=== PATIENT | female | born 1955 | race Caucasian/White ===

== ENCOUNTER → 2017-09-29 10:37 | Outpatient (CLI) | payer MEDICAID, SELFPAY ==
[2017-10-05 08:11] LABS: HPV Reflexed? NOT INDICATED
== END ==
PROVIDERS: Family Provider Family Medicine; PCP Family Medicine; Visit Provider Family Medicine
DX: Z01.419 Encounter for gynecological examination (general) (routine) without abnormal findings (principal)
CPT/HCPCS: 88175; G0145

== ENCOUNTER → 2020-05-29 | Outpatient (CLI) | payer OTHER, SELFPAY ==
[2017-09-29 11:14] VITALS: BMI 30.2
== END | disposition home or self-care (01) ==
LOC: LABSPEC 15:28
PROVIDERS: PCP Family Medicine; Referring Provider Otolaryngology; Visit Provider Otolaryngology
DX: J02.9 Acute pharyngitis, unspecified (principal)
CPT/HCPCS: 87070

== ENCOUNTER 2021-05-12 10:47 | Outpatient (CLI) | payer MEDICAID, SELFPAY ==
[2021-05-12 12:47] LABS: ALB/GLOB Ratio 0.9 RATIO (0.9-2.4); AST(SGOT) 20 U/L (15-37); Alanine Aminotransfer ALT/SGPT 26 U/L (13-56); Albumin, Serum 3.4 g/dL (3.2-5.0); Alkaline Phosphatase 93 U/L (45-117); Anion Gap 6 (5-15); BUN 22 mg/dL (7-18); BUN/Creat Ratio 25.6 RATIO (10-20); Calcium,Total 9.3 mg/dL (8.5-10.1); Chloride 105 mmol/L (98-107); Cholesterol 169 mg/dL (200); Creatinine, Serum 0.86 mg/dL (0.55-1.02); EST Glomerular Filtration Rate 71 mL/min (>60); Est Glom Filt Rate - Afr Amer 86 mL/min (>60); Globulin 3.9 g/dL (2.2-4.2); Glucose 104 mg/dL (74-106); High Density Lipoprotein 62 mg/dL; Potassium 4.5 mmol/L (3.5-5.1); Protein, Total 7.3 g/dL (6.4-8.2); Sodium Level 139 mmol/L (136-145); Triglycerides 144 mg/dL; Very Low Density Lipoprotein 29 mg/dL (5-40)
== END 2021-05-12 23:59 | disposition home or self-care (01) ==
LOC: BIMLAB 10:48
PROVIDERS: PCP Family Medicine; Referring Provider Family Medicine; Visit Provider Family Medicine
DX: E78.5 Hyperlipidemia, unspecified (principal)
CPT/HCPCS: 36415; 80053; 80061

== ENCOUNTER 2021-05-20 11:45 | Outpatient (CLI) | payer MEDICAID, SELFPAY | END 2021-05-20 23:59 | disposition home or self-care (01) | LOC: CT 11:51 | PROVIDERS: PCP Family Medicine; Visit Provider Specialist | DX: M17.11 Unilateral primary osteoarthritis, right knee (principal) | CPT/HCPCS: 73700 ==

== ENCOUNTER 2021-06-03 05:27 | Day surgery (SDC) | payer MEDICAID, SELFPAY ==
--- NOTE | 2021-05-18 12:55 | PCM.HP.BLA ---
History and Physical History and Physical [facility] Patient Name: Geraldine Colmenares : 1955 From: RAE BALDWIN PA-C DATE OF SURGERY: 06/03/2021 SCHEDULED PROCEDURE: right total knee arthroplasty HISTORY OF PRESENT ILLNESS: Preoperative history and physical exam was performed on May 18, 2021. This is a 65-year-old female who has had ongoing pain for over a year. She has had bilateral knee pain with the right being worse than the left. Patient's pain is located over the medial aspect of the knee. She does have start up pain. Her pain is intermittent, dull, sharp. Pain is increased with going up and down stairs. She does get locking sensation in the knee. Pain can reach a size a 5/10 with activities. She has increased pain with other activities such as biking. She has attempted previous aquatic therapy without relief. She has had previous corticosteroid injection in November 2020 with no relief. She has not been able to take nonsteroidal anti-inflammatories secondary to her gastric bypass and gastroesophageal reflux disease. Patient denies any previous surgery on the right knee. She has used Tylenol with minimal relief. Patient underwent gastric bypass in 2011 when she lost approximately 125 pounds. She states recently she has regained approximately 60 pounds. There is been no recent fevers, chills, recent infections. We are obtaining surgical clearance from the primary care physician Dr. Rigoberto Barclay. After failing conservative measures and discussing treatment options, the patient does wish to proceed with a right total knee arthroplasty. REVIEW OF SYSTEMS: ROS: Const: Reports anxiety and weight change, but denies anorexia, change in appetite, fever, difficulty sleeping. CV: Reports chest pain, but denies heart murmur, irregular heartbeat and peripheral vascular disease. Resp: Denies asthma, cough, pneumonia, sleep apnea, shortness of breath, tuberculosis and wheezing. GI: Denies constipation, diarrhea, heartburn, nausea, rectal itching, bloody stools and vomiting. : Reports postmenopausal symptoms. Denies incontinence. Musculo: Reports trouble walking and weakness, but denies leg swelling and pain. Skin: Reports history of shingles, but denies Raynaud's and tattoo. Neuro: Reports dizziness but denies ambulatory dysfunction, numbness/tingling and tremor. Psych: Reports stress, but denies anxiety, depression, insomnia and mental illness. Edgar/Lymph: Denies anemia, bleeding/bruising tendency and past transfusion. Reviewed, no changes. PAST MEDICAL HISTORY: Advance Care Plan: Other Directive, POA Effective Date: 11/28/2020 Other Directive, LIVING WILL Effective Date: 11/28/2020 PMH: Medical Problems: Arthritis, Hypercholesterolemia, Reflux Accidents: None Surgical Hx: Carpal Tunnel Release Lt - (2005) ROTHMAN Skin Removed On Belly - (2013) Cataracts - (2020) BILAT Gastric Bypass - 2012 Breast Reduction - 2014 Anesthesia Complications: None Assistive Devices: Glasses Reviewed and updated. SOCIAL HISTORY: SH: Marital: .Occupation: Retired.Work Status: Retired.Hand Dominance: Right-handed. Personal Habits: Cigarette Use: Former.Smokeless Tobacco: Never Used Smokeless Tobacco.E-Cigarette Use: Never used.Alcohol: Occasionally.Drug Use: Former Illegal Drug User - MARIJUANA.Enjoy Exercising: Exercises 1-3 x/month. Reviewed and updated. VITALS: Ht: 67 Wt: 220lb Wt k.792 BMI: 34.5 BP: 118/64 Pulse: 79 Resp: 16 T: 98.1 T: 36.7C Pain Level: 2 O2SatR: 98 ALLERGIES: Codeine MEDICATIONS: Oxycodone HCL 5 mg 1-2 tab by mouth every 4 hours, Zofran 4 mg 1-2 by mouth every 8 as needed nausea, Meloxicam 7.5 mg 1 by mouth twice a day, Simvastatin 40 mg 1 by mouth every day, Omeprazole 40 mg 1 by mouth every day, Vitamin D (Cholecalciferol) 25 mcg (1000 Ut) 1 PO daily, Loratadine 10 mg 1 PO daily PRE-OP EXAM: General appearance:NORMAL Other: Eyes: Conjunctivae and lids: NORMAL Pupils: ERR Ears, Nose, Mouth, and Throat: NORMAL Other: Inspection of lips, teeth and gums: NORMAL Other: Neck: Examination of neck: no masses noted. Respiratory: Assessment of respiratory effort: NORMAL Other: Auscultation of lungs: clear to auscultation no wheezes, rhonchi or rales. Cardiovascular: Auscultation of heart: regular rate and rhythm, no murmurs, gallops or rubs. PHYSICAL EXAMINATION: Patient walks with an antalgic gait. Right knee is cool to touch without erythema or signs of infection. She has trace effusion. Patient has varus deformity which is correctable on exam. There is tenderness to palpation along the medial and lateral joint line. Range of motion: Lacks 2 full extension to 120 flexion. Stable to varus/valgus stress test, stable to anterior/posterior drawer exam. Positive pain associated with Zara's examination. IMAGING STUDIES: Previous x-rays reveal varus alignment with medial joint space narrowing, subchondral sclerosis, osteophyte formation consistent with severe stage IV medial compartment osteoarthritis. There is osteophytes in the lateral compartment. There is joint space narrowing and osteophyte formation in the patellofemoral compartment. Bony erosions of the medial compartment. On the AP/tunnel view patient has severe stage IV left knee medial compartment osteoarthritis. IMPRESSION: 1. Severe right knee osteoarthritis 2. Severe left knee osteoarthritis 3.*Soft gel reflux disease 4. Hypercholesterolemia 5. History of gastric bypass PLAN: I did discuss and review with the patient all treatment options including surgical versus nonsurgical options. Patient does wish to proceed with the above-stated procedure. Potential risks, benefits, and complications of the procedure were discussed in detail including but not limited to , infection, nerve and blood vessel damage, persistent pain, numbness, tingling, paresthesias, blood clot, pulmonary embolism, and requirement for possible further surgery. The patient expressed full understanding and has no further questions for the doctor. Patient does agree to proceed with the above-stated procedure and has signed the surgery consent form. Dr. Elijah Chairez also met with the patient at the preoperative visit and discussed questions and course of treatment. We discussed the current risks associated with COVID 19. This does include the risk of exposure while in the hospital. Patient was reassured local hospitals have low infection rates and are taking all necessary precautions to avoid exposure to patients. In addition, we discussed strategies that can be used to help limit exposure including those that limit the patient's time in the hospital. Also using strategies to limit the patient's need for continued inpatient services after being discharged from the hospital. Patient was notified that we will need to comply with any screening or testing the hospital wishes to perform or that surgery may be delayed for any positive results. This dictation was created using voice recognition software. Phonetic and/or grammatical errors may exist. ___ I have re-examined the patient. There are no clinical changes since date of exam. ___ See progress notes for changes. ___ Dictated on admission Date: Time: Signature:
--- NOTE | 2021-05-20 08:34 | CT_ITS ---
STUDY: CT RIGHT LOWER EXTREMITY WITHOUT CONTRAST REASON FOR EXAM: Right knee osteoarthritis, varus deformity, surgical planning. TECHNIQUE: Transaxial CT imaging of the lower extremity was performed. Coronal and sagittal images were reformatted. Individualized dose optimization techniques were used for this CT. COMPARISON: None. FINDINGS: Knee: There are marginal osteophytes, mild subchondral eburnation and joint space narrowing of the medial femorotibial compartment (coronal reconstruction 31). There is preservation of joint space of the lateral femorotibial compartment. There are small marginal osteophytes of the patella with preservation of joint space. Hip: There is small marginal osteophytes of the acetabulum with preservation of joint space. Ankle: Normal tibiotalar, posterior subtalar, and talonavicular articulations. There are posterior and plantar calcaneal enthesophytes (sagittal reconstruction 22). CT/Extremity Lower without Contra IMPRESSION: Right knee osteoarthritis. Electronically Signed: Wm Bedolla MD at 15:00 EDT ,
--- NOTE | 2021-05-20 08:41 | EKG12_ITS ---
Test Reason : PREOP Blood Pressure : / mmHG Vent. Rate : 077 BPM Atrial Rate : 077 BPM P-R Int : 144 ms QRS Dur : 084 ms QT Int : 384 ms P-R-T Axes : 054 -18 007 degrees QTc Int : 434 ms Normal sinus rhythm Normal ECG Confirmed by LUNA BUTCHER, CAMERON ([id number]), purchase request editor OSCAR BARKER ([id number]) on 05/21/2021 12:51:11 PM Referred By: Elijah Chairez Confirmed By:CAMERON CARRASCO MD
[2021-05-20 10:56] LABS: Absolute Lymphocyte Count 1.93 X10^3/uL (0.83-4.51); Absolute Neutrophil Count 4.7 X10^3/uL (2.0-7.7); Basophil# 0.04 X10^3/uL; Basophil% 0.5 % (0-1); Differential Indicated SCAN CRITERIA MET; Eosinophil# 0.16 X10^3/uL; Eosinophils% 2.1 % (0-5); Hematocrit 44.5 % (37-47); Hemoglobin 14.6 g/dL (12.0-15.0); Lymphocyte # 1.93 X10^3/ul (0.83-4.51); Lymphocyte % 25.8 % (19-41); Mean Corp Hgb Conc 32.8 g/dL (32-36); Mean Corpuscular Hgb 30.7 pg (27.0-32.0); Mean Corpuscular Volume 93.7 fL (81-99); Mean Platelet Vol. 10.7 fl (6.2-12.0); Monocyte# 0.58 X10^3/uL; Monocyte% 7.8 % (0-10); NRBC Flagged by Analyzer 0 % (0-5); Neutrophil # 4.74 X10^3/uL (2.7-7.7); Neutrophil % 63.5 % (47-70); POSITIVE COUNT YES; Platelet Count 236 K/mm3 (150-450); RBC Distribution Width CV 12.6 % (11.6-14.6); RBC Distribution Width SD 43.4 fl (35.1-43.9); Red Blood Count 4.75 M/mm3 (4.2-5.4); White Blood Count 7.5 K/mm3 (4.4-11.0)
[2021-05-20 12:24] LABS: Hemoglobin A1c 5.7 % (3.8-5.6)
[2021-06-03] VITALS (10 sets, daily range): BP systolic 95–142; BP diastolic 66–82; PULSE 74–103; RESP 16–17; TEMP 36.1–36.9; O2SAT 97–100; BMI 36.3
--- NOTE | 2021-06-03 | KNEE_PTH ---
PATIENT: CHEY LARA LOC: [facility] – [place] U#:[id number] AGE/SX: 65/F ROOM: RE06/03/[address]: Dr. Elijah Chairez MD : 1955 BED: DIS: 06/03/2021 SPEC #: [id number] RECD: 06/03/21 12:27 STATUS: YRN RENena #: [id number] CHARO: 06/03/21 00:[address]: Elijah Chairez DEPT: SURGICAL PATHOLOGY RECD BY: Erich Paniagua ENTERED: 06/03/21 12:28 SP TYPE: TOTAL KNEE OTHR DR: Dr. Rigoberto Barclay, DO Tissues: Knee, NOS Procedures: Decalcification bone/plaque Surgery Specimen Level IV HEADER OPERATION: ERAS, total knee replacement robotic arm assist PRE-OP DIAGNOSIS: Right knee osteoarthritis TISSUE SUBMITTED: Right knee bone MICROSCOPIC DIAGNOSIS Bone and soft tissue, right knee, total knee replacement/resection: Pieces of bone with degenerative osteoarthritic changes. /SJ 06/08/2021 MICROSCOPIC DESCRIPTION Slides are reviewed. GROSS DESCRIPTION Received is one container designated debrided bone and tissue right knee. The specimen consists of multiple fragments of gil-yellow bone measuring in aggregate 10 x 11 x 4 cm. A number of bony fragments contain articular surfaces consistent with tibial plateau and femoral condyle and displaying prominent osteophyte formation and bone erosion. No soft tissue is present. Plywood Matcher sections are submitted in two cassettes after decalcification. / ANA:roberto 06/03/2021 TC:5 CPT: 89556, 98884
[2021-06-03] MEDS: Lactated Ringers 1,000 ML 999 ML IV ×2 (06:34→07:30)
[2021-06-03] MEDS: Gabapentin 600 MG Tablet PO (06:34)
--- NOTE | 2021-06-03 06:58 | PCM.OPRPT ---
Report of Operation Date of Procedure: 06/03/21 Pre-Operative Diagnosis: Right knee primary osteoarthritis Post-Operative Diagnosis: Right knee primary osteoarthritis Surgery/Procedure Performed:: Right minimally invasive robotic total knee replacement Description of Surgical Findings:: Stable knee with good patella tracking Surgeon: Elijah Chiarez production leader: Gerhard Nunn Type of Anesthesia: Spinal Anesthesiologist: Zay Ceja Special Medications: 2 g Ancef, 1 g TXA at incision, 1 g TXA closure, 10 mg Decadron, joint cocktail (5 mg Duramorph, 30 mL of 0.5% Ropivicaine, 1000 units of epinephrine, 30 mg of Toradol) Specimen's removed: Bony cuts Estimated Blood Loss (mL): 25 Fluids Replaced: 1500 mL crystalloid Description of Procedure: Implants used: 1. [place] size 3 triathlon cruciate retaining distal femoral press-fit component 2. Oz size 3 press-fit tritanium tibial baseplate 3. [place] X3 10 mm CS polyethylene 4. [place] X3 32 mm asymmetric asymmetric patella Brief history operative indications: 65-year-old f with history of right knee osteoarthritis with radiographic findings with loss of joint space, osteophyte formation and subchondral sclerosis. Failed conservative measures as mentioned in the H&P. Discussion of total knee arthroplasty as well as risk and benefits were discussed the patient including but not limited to blood loss, DVTs, PEs, neurovascular damage, general risk of anesthesia including loss of life, and stiffness or instability were discussed with patient. Patient demonstrated understanding and was able to sign informed consent. Procedure: On the date of procedure patient's right lower extremity was marked in the preoperative area. The patient was then taken back to the operating room where the patient was placed on the table in the supine position. All bony prominences were identified a well-padded. Anesthesia assumed control of the C-spine and airway and remained controlled throughout the remainder of the procedure. A tourniquet was placed on the right upper thigh and the leg was prepped in a sterile fashion. The surgeon then scrubbed at this time .Upon reentering the room right lower extremity was draped in a standard orthopedic fashion. A timeout was then called and everyone agreed upon the side, the site, the procedure to be performed, patient's identity and antibiotics given. Esmarch bandage was used to exsanguinate the extremity and the tourniquet was placed up to 250 mmHg with the knee in flexion. A midline skin incision was made and sharp dissection was taken down through skin subcutaneous tissue and fat. The standard medial parapatellar incision was made and the patella was subluxed laterally. An Appropriate deep MCL release was done and the fat pad was resected. Our attention was then directed to the patella. The patella was everted and a flat resection was made. The knee was then flexed up in 2 femoral pins were placed inside the incision and 2 tibial pins were placed outside the incision in the medial tibia bicortically. Once this was completed the 2 checkpoints in the femur and tibia were placed. Knee was then flexed up and the bony landmarks were registered. Once this was completed knee was taken through range of motion and manually stressed allowing us to a plan for an appropriate tibial cut. The robotic arm was brought into the field sterilely and checkpoint and saw were registered. Based on the patient's deformity the tibial cut was made neutral to the tibial axis. At this time the tensioner was then placed in the joint and ligament tension was checked at 90 degrees and full extension. Based on the patient's ligamentous tension appropriate adjustments were made to the operative plan and ligament releases were done. Once we were happy with our operative plan with balanced flexion and extension gaps our attention was directed to the femur. The robot was brought into the field sterilely and registered. Posterior condylar cuts, anterior chamfer cuts and anterior cuts were appropriately made for a size 3 femur. When these were completed the saws were switched out in the distal femoral and posterior chamfer cuts were made. Protecting the soft tissue throughout this time. A size 3 tibial base plate was selected. the knee was flexed to 90 degrees and the soft tissues and posterior osteophytes were removed from the joint. 40 cc of the periarticular injection was injected into the posterior medial corner of the joint. The appropriate trials were then placed on the femur and tibia. A trial polyethylene was trialed to ensure proper balancing and stability of the knee. The appropriate tibial internal rotation was then marked with a bovie. Our attention was then directed to the patella. The lug holes were drilled and the patella trial was placed. Patellar tracking was checked and deemed appropriate. Once we were happy lug holes were drilled for the femur and trial components were removed. the tibia was subluxed and pinned into place and the keel was punched and drilled appropriately. Final components were verified and opened, and cement was mixed in a vacuum. basestone Simplex cement was used. The wound was copiously irrigated with normal saline. When the cement was ready the components were impacted into place starting with the tibia, femur and finally cementing the patella. The trial poly component was placed and the knee was placed in full extension. All excess cement was removed in the process. Once the cement had cured the tracking, alignment and balance were verified and a size 10 mm CS polyethylene component was placed. Once the final components were placed a 3-minute dilute Betadine lavage was performed followed by an Irrisept lavage was performed and the wound was copiously irrigated with normal saline solution and the periarticular injection was given. The wound was closed in a layer lópez fashion using #1 vicryl interrupted sutures for the arthrotomy, 2-0 interrupted Vicryl suture for the subcuticular layer and ingris for final skin closure. A sterile compressive dressing was then placed. The patient was then awakened from anesthesia, transferred to the [place] and transferred to the PACU for recovery. Post op plan DVT ppx: ASA 81mg BID, thigh high compression stockings Follow up: in office in 2 weeks for wound check PT: to start POD #0 at hospital, outpatient PT should be arranged. My physician investment sales assistant was a vital part of this case. He was important in appropriate retraction during the case, and protection of soft tissues during bony cuts. His intimate knowledge of the case and my steps aided in safe and expedient completion of the procedure as well as appropriate position of the leg during the case. He was also vital in assisting with closure under my direct supervision. Due to the complexity of this case robotic arm was used to assist in the surgery to improve accuracy and clinical outcomes. Complications No intraoperative complications Admit VTE Documentation VTE Present on Admission: No VTE Mechan Device Prophylaxis: SCD's and Thigh High DUSTY Hose VTE Pharm Prophylaxis ordered?: Yes
[2021-06-03] MEDS: Cefazolin 2 GM in 0.9% Normal Saline 100 ML IV (07:31)
[2021-06-03] MEDS: TXA 1000mg in NS100 100ml (IVPB at Incision) 660 MG IV (07:35)
[2021-06-03] MEDS: TXA 1000mg in NS100 100ml (IVPB at Closure) 660 MG IV (08:45)
--- NOTE | 2021-06-03 09:54 | RAD_ITS ---
STUDY: X-RAY - RIGHT KNEE REASON FOR EXAM: Female, 65 years old. Postoperative evaluation after total knee arthroplasty. TECHNIQUE: 2 view(s) of the knee. COMPARISON: CT of the knee dated 05/20/2021. FINDINGS: There is a 3 component total knee arthroplasty in anatomic position. There are expected post-operative findings. There are no complications. No other significant abnormality is identified. RAD/Knee 1 or 2 Views IMPRESSION: Total knee arthroplasty in anatomic alignment without complications. Electronically Signed: Rock Byers MD at 10:25 EDT ,
[2021-06-03] MEDS: Lactated Ringers 1,000 ML 125 ML IV (09:58)
[2021-06-03] MEDS: Cefazolin 1 GM/50 ML BAG IV (12:16)
[2021-06-03] MEDS: oxyCODONE 5 MG Tablet PO (14:50)
[2021-06-03 15:11] LABS: Bedside Glucose 100 mg/dL (74-106)
== END 2021-06-03 15:04 | disposition home or self-care (01) ==
LOC: SDC 05:31 → AC 05:31
PROVIDERS: Anesthesiology; PCP Family Medicine; Referring Provider Specialist; Visit Provider Specialist
PROC: 0SRC0JZ Replacement of Right Knee Joint with Synthetic Substitute, Open Approach (ICD-10-PCS; CPT 27447; principal; 2021-06-03 07:00)
DX: M17.11 Unilateral primary osteoarthritis, right knee (principal); E11.9 Type 2 diabetes mellitus without complications; F17.210 Nicotine dependence, cigarettes, uncomplicated; E78.00 Pure hypercholesterolemia, unspecified; K21.9 Gastro-esophageal reflux disease without esophagitis; Z98.84 Bariatric surgery status; Z79.899 Other long term (current) drug therapy
CPT/HCPCS: 27447; S2900; 01402; 36415; 73560; 82962; 83036; 83735; 85025; 87081; 88305; 88311; 93005; 97162; C1776; J2405; J3475

== ENCOUNTER → 2021-06-10 | Outpatient (CLI) | payer MEDICAID, SELFPAY ==
[2021-06-10 10:57] LABS: Mucous, Urine 0 SEEN /hpf (<or=2+); Red Blood Cells-Urine 0 SEEN /hpf (0-5)
[2021-06-10 12:39] LABS: Color, Urine Yellow (Yellow); Glucose, Dipstick Normal (Normal); Ketone-Dipstick 5 mg/dl (Negative); Leukocyte Esterase-Dipstick 500 /ul (Negative); Nitrite-Dipstick Negative (Negative); Occult Blood-Urine 10 /ul (Negative); Protein-Dipstick 30 mg/dl (Negative); Urine Clarity Clear (Clear); Urine Urobilinogen 4 mg/dl (Normal)
[2021-06-10 12:46] LABS: Urine Bilirubin Dipstick 1 mg/dL (Negative)
[2021-06-10 13:13] LABS: Bacteria 2+ /hpf (None Seen); Squamous Epithelial Cells - UA 0-5 SEEN /hpf (5-10); White Blood Cells 5-10 SEEN /hpf (0-5)
== END | disposition home or self-care (01) ==
LOC: LABSPEC 10:55
PROVIDERS: PCP Family Medicine; Referring Provider Physician Assistant; Visit Provider Physician Assistant
DX: R39.9 Unspecified symptoms and signs involving the genitourinary system (principal)
CPT/HCPCS: 81001; 87086; 87088

== ENCOUNTER → 2021-06-12 | Outpatient (CLI) | payer MEDICAID, SELFPAY ==
[2021-06-12 11:20] LABS: Bacteria 0 SEEN /hpf (None Seen); Mucous, Urine 0 SEEN /hpf (<or=2+); Red Blood Cells-Urine 0 SEEN /hpf (0-5); White Blood Cells 0 SEEN /hpf (0-5)
[2021-06-12 12:30] LABS: Color, Urine Yellow (Yellow); Glucose, Dipstick Normal (Normal); Ketone-Dipstick 5 mg/dl (Negative); Leukocyte Esterase-Dipstick Negative /ul (Negative); Nitrite-Dipstick Negative (Negative); Occult Blood-Urine Negative /ul (Negative); Protein-Dipstick 15 mg/dl (Negative); Specific Gravity, Urine 1.025 (1.002-1.030); Urine Bilirubin Dipstick Negative (Negative); Urine Clarity Clear (Clear); Urine Urobilinogen Normal (Normal)
[2021-06-12 12:46] LABS: Squamous Epithelial Cells - UA 0-5 SEEN /hpf (5-10)
== END | disposition home or self-care (01) ==
LOC: LABSPEC 11:13
PROVIDERS: PCP Family Medicine; Referring Provider Physician Assistant; Visit Provider Physician Assistant
DX: N39.0 Urinary tract infection, site not specified (principal)
CPT/HCPCS: 81001; 87086

== ENCOUNTER → 2021-10-16 | Outpatient (CLI) | payer MEDICAID, SELFPAY | END | disposition home or self-care (01) | LOC: BIMLAB 15:18 → LABSPEC 15:19 | PROVIDERS: PCP Family Medicine; Visit Provider Physician Assistant | DX: U07.1 COVID-19 (principal); J02.9 Acute pharyngitis, unspecified | CPT/HCPCS: 87635; U0003; U0005 ==

== ENCOUNTER → 2021-11-20 | Outpatient (CLI) | payer MEDICAID, SELFPAY ==
--- NOTE | 2021-11-20 08:04 | CT_ITS ---
STUDY: CT SCAN LOWER EXTREMITY LEFT REASON FOR EXAM: Female, 66 years old. [facility] PROTOCOL RADIATION DOSAGE (If Supplied By Facility): CTDIvol = ( 18.95 ) mGy, DLP = ( 1358.49 ) mGycm. Individualized dose optimization techniques were used for this CT.? TECHNIQUE: Multiple axial tomographic images of the left hip, left knee and left ankle were obtained. Coronal and sagittal reconstruction was obtained as well. COMPARISON: None. FINDINGS: Imaging of the left hip joint was obtained. There is a mild degree of joint space narrowing. No evidence of fracture or dislocation. Imaging of the right knee joint was obtained. There is a marked degree of joint space narrowing involving the medial compartment of the knee joint with degenerative spur formation along the medial aspect of the distal femoral condyle. Minimal synovial thickening. Imaging of the ankle joint was obtained. There is evidence of a small calcaneal spurs. CT/Extremity Lower without Contra IMPRESSION: Marked degree of joint space narrowing involving the medial compartment of knee joint with degenerative spur formation along the medial aspect of the distal femoral condyle. Electronically Signed: Sanjeev Wilkins MD at 15:06 EDT ,
== END | disposition home or self-care (01) ==
LOC: CT 08:03
PROVIDERS: PCP Family Medicine; Referring Provider Specialist; Visit Provider Specialist
DX: M17.12 Unilateral primary osteoarthritis, left knee (principal)
CPT/HCPCS: 73700

== ENCOUNTER 2021-12-02 05:33 | Day surgery (SDC) | payer MEDICAID, SELFPAY ==
--- NOTE | 2021-11-16 22:43 | PCM.HP.BLA ---
History and Physical History and Physical [facility] Patient Name: Geraldine Colmenares : 1955 From:? RAE BALDWIN PA-C? DATE OF SURGERY:? 12/02/2021 SCHEDULED PROCEDURE:? left total knee arthroplasty HISTORY OF PRESENT ILLNESS: Reoperative history and physical exam was performed on November 16, 2021.? This is a 66-year-old female who has had ongoing pain for several years.? She has had pain in bilateral knees.? She recently underwent a right total knee arthroplasty in May 2021.? She is doing well from that procedure.? She has been having intermittent pain in the left knee.? Pain is increased with going up and down stairs.? She states it occasionally locks up on her.? She gets increased pain over the medial aspect of the knee.? She feels this has progressively been getting worse.? She does have start up pain.? She does get increased pain with stairs.? Pain does not awaken her at night.? She has tried rest, ice, heat, elevation with minimal relief.? She has had previous physical therapy and home exercises without relief.? She has tried oral medications including Tylenol with no relief in symptoms.? She has not been able to take nonsteroidal anti-inflammatories due to previous gastric bypass.? After failing conservative measures and discussing all treatment options, the patient does wish to proceed with a left total knee arthroplasty.? She denies previous surgery on the left knee.? She has medical history pertinent for reflux disease.? She also reports recently on October 10, 2021 acquiring COVID-19.? Her symptoms were cordlike symptoms including sore throat, cough, runny nose.? She did not require any hospitalization.? She was treated by the primary care physician.? She has been asymptomatic since October 13, 2021.? She currently denies any chest pain, shortness of breath, fevers chills or calf pain.? We are reaching out for preoperative clearance from the primary care physician Dr. Rigoberto Barclay. REVIEW OF SYSTEMS: ROS: Const: Reports anxiety and weight change, but denies anorexia, change in appetite, fever, difficulty sleeping. CV: Reports chest pain, but denies heart murmur, irregular heartbeat and peripheral vascular disease. Resp: Denies asthma, cough, pneumonia, sleep apnea, shortness of breath, tuberculosis and wheezing. GI: Denies constipation, diarrhea, heartburn, nausea, rectal itching, bloody stools and vomiting. : Reports postmenopausal symptoms. Denies incontinence. Musculo: Reports pain, trouble walking and weakness, but denies leg swelling. Skin: Reports history of shingles, but denies Raynaud's and tattoo. Neuro: Reports dizziness but denies ambulatory dysfunction, numbness/tingling and tremor. Psych: Reports stress, but denies anxiety, depression, insomnia and mental illness. Edgar/Lymph: Denies anemia, bleeding/bruising tendency and past transfusion. Reviewed and updated. PAST MEDICAL HISTORY: Advance Care Plan: Other Directive, POA Effective Date: 11/28/2020 Other Directive, LIVING WILL Effective Date: 11/28/2020 PMH: Medical Problems: Arthritis, Hypercholesterolemia, Reflux Accidents: None Surgical Hx: Carpal Tunnel Release Lt - (2005) ROTHMAN Skin Removed On Belly - (2013) Cataracts - (2020) BILAT Gastric Bypass - 2012 Breast Reduction - 2014 Right Robotic Total Knee Replacement - (06/03/2021) SAW @ [facility] Covid 19 - (10/2021) Covid 19 vaccinated Anesthesia Complications: None Assistive Devices: Glasses Reviewed and updated. SOCIAL HISTORY: SH: Marital: .Occupation: Retired.Work Status: Retired.Hand Dominance: Right-handed. Personal Habits:? Cigarette Use: Former.Smokeless Tobacco: Never Used Smokeless Tobacco.E-Cigarette Use: Never used.Alcohol: Occasionally.Drug Use: Former Illegal Drug User - MARIJUANA.Enjoy Exercising: Exercises 1-3 x/month. Reviewed, no changes. VITALS: Ht: 66.5 Wt: 228lb Wt k.421 BMI: 36.2 BP: 122/60 Pulse: 98 Resp: 14 T: 97.5 T: 36.4C Pain Level: 4 O2SatR: 75 ALLERGIES: Codeine? MEDICATIONS: Meloxicam 7.5 mg 1 by mouth twice a day, Oxycodone HCL 5 mg 1-2 tab by mouth every 4 hours, Simvastatin 40 mg 1 by mouth every day, Omeprazole 40 mg 1 by mouth every day, Vitamin D (Cholecalciferol) 25 mcg (1000 Ut) 1 PO daily, Tylenol Extra Strength 500 mg 2 pills by mouth 3x/day prn PRE-OP EXAM:? General appearance:NORMAL? ? ? Other: Eyes: Conjunctivae and lids: NORMAL? Pupils: ERR Ears, Nose, Mouth, and Throat: NORMAL? Other: Inspection of lips, teeth and gums: NORMAL? ?Other: Neck: Examination of neck: no masses noted. Respiratory: Assessment of respiratory effort: NORMAL? ?Other: ?Auscultation of lungs: clear to auscultation no wheezes, rhonchi or rales. Cardiovascular:? Auscultation of heart: regular rate and rhythm, no murmurs, gallops or rubs. PHYSICAL EXAMINATION: Patient does walk with an antalgic gait.? Left knee without erythema or signs of infection.? She does have mild effusion.? There is varus deformity which is correctable on exam.? She has tenderness to palpation along the medial joint line.? Range of motion: 0 extension to 120 flexion.? Stable to varus/valgus stress test, stable to anterior/posterior drawer exam. IMAGING STUDIES: Previous x-rays of the left knee reveal varus alignment with severe medial joint space narrowing, subchondral sclerosis, osteophyte formation with bony erosions in the medial compartment consistent with severe stage IV tricompartmental erosive osteoarthritis. IMPRESSION: 1.? Severe left knee tricompartmental osteoarthritis 2.? Gastroesophageal reflux disease 3.? Hypercholesterolemia 4.? COVID-19 October 10, 2021:? Asymptomatic PLAN: I did discuss and review with the patient all treatment options including surgical versus nonsurgical options.? Patient does wish to proceed with the above-stated procedure.? Potential risks, benefits, and complications of the procedure were discussed in detail including but not limited to , infection, nerve and blood vessel damage, persistent pain, numbness, tingling, paresthesias, blood clot, pulmonary embolism, and requirement for possible further surgery.? The patient expressed full understanding and has no further questions for the doctor.? Patient does agree to proceed with the above-stated procedure and has signed the surgery consent form. We discussed the current risks associated with COVID 19.? This does include the risk of exposure while in the hospital.? Patient was reassured local hospitals have low infection rates and are taking all necessary precautions to avoid exposure to patients.? In addition, we discussed strategies that can be used to help limit exposure including those that limit the patient's time in the hospital.? Also using strategies to limit the patient's need for continued inpatient services after being discharged from the hospital.? Patient was notified that we will need to comply with any screening or testing the hospital wishes to perform or that surgery may be delayed for any positive results. This dictation was created using voice recognition software. Phonetic and/or grammatical errors may exist. ___? I have re-examined the patient.? There are no clinical changes since date of exam. ___? See progress notes for changes. ___? Dictated on admission Date: ? ? ?Time: Signature:
--- NOTE | 2021-11-20 08:05 | RAD_ITS ---
STUDY: X-RAY CHEST REASON FOR EXAM: Female, 66 years old. PREOP TECHNIQUE: PA AP and lateral COMPARISON: None. FINDINGS: The lungs are clear and expanded. There is no demonstrated pleural abnormality. Normal size heart. Normal mediastinum and lorena. Normal visualized pulmonary arteries. Normal visualized aortic arch and descending thoracic aorta. Mild wedge deformity L1. Mild degenerative disc disease mid and lower thoracic spine. Normal visualized ribs, clavicles, and shoulders. There is no demonstrated abnormality of the visualized soft tissue structures of the upper abdomen. RAD/Chest PA and Lateral IMPRESSION: No acute cardiopulmonary disease. Mild wedge deformity T12. Mild degenerative changes mid and lower thoracic spine. Electronically Signed: Praveen Jackson MD, HECTOR at 16:59 EDT ,
[2021-11-20 09:25] LABS: Absolute Lymphocyte Count 1.75 X10^3/uL (0.83-4.51); Absolute Neutrophil Count 4.1 X10^3/uL (2.0-7.7); Basophil# 0.04 X10^3/uL; Basophil% 0.6 % (0-1); Eosinophil# 0.24 X10^3/uL; Eosinophils% 3.6 % (0-5); Hematocrit 44.9 % (37-47); Hemoglobin 14.5 g/dL (12.0-15.0); Lymphocyte # 1.75 X10^3/ul (0.83-4.51); Lymphocyte % 26.5 % (19-41); Mean Corp Hgb Conc 32.3 g/dL (32-36); Mean Corpuscular Hgb 30.9 pg (27.0-32.0); Mean Corpuscular Volume 95.5 fL (81-99); Mean Platelet Vol. 10.5 fl (6.2-12.0); Monocyte% 7.6 % (0-10); NRBC Flagged by Analyzer 0 % (0-5); Neutrophil # 4.06 X10^3/uL (2.7-7.7); Neutrophil % 61.4 % (47-70); Platelet Count 238 K/mm3 (150-450); RBC Distribution Width CV 13.3 % (11.6-14.6); RBC Distribution Width SD 47.2 fl (35.1-43.9); White Blood Count 6.6 K/mm3 (4.4-11.0)
[2021-11-20 09:57] LABS: Albumin, Serum 3.4 g/dL (3.2-5.0); Anion Gap 7 (5-15); BUN 14 mg/dL (7-18); BUN/Creat Ratio 15.2 RATIO (10-20); Calcium,Total 9.3 mg/dL (8.5-10.1); Chloride 106 mmol/L (98-107); Creatinine, Serum 0.92 mg/dL (0.55-1.02); EST Glomerular Filtration Rate 65 mL/min (>60); Est Glom Filt Rate - Afr Amer 79 mL/min (>60); Glucose 108 mg/dL (74-106); Magnesium 2.1 mg/dL (1.6-2.6); Potassium 4.7 mmol/L (3.5-5.1); Sodium Level 142 mmol/L (136-145)
--- NOTE | 2021-12-01 07:30 | KNEE_PTH ---
PATIENT: CHEY LARA LOC: [facility] – [place] U#:[id number] AGE/SX: 66/F ROOM: RE12/02/[address]: Dr. Elijah Chairez MD : 1955 BED: DIS: 12/02/2021 SPEC #: [id number] RECD: 12/02/21 10:40 STATUS: YRN RENena #: [id number] CHARO: 12/01/21 07:[address]: Elijah Chairez DEPT: SURGICAL PATHOLOGY RECD BY: Brea Byers ENTERED: 12/02/21 11:26 SP TYPE: TOTAL KNEE OTHR DR: Dr. Rigoberto Barclay, DO Tissues: Knee, NOS Procedures: Decalcification bone/plaque Surgery Specimen Level IV HEADER OPERATION: ERAS, total knee replacement robotic arm assist PRE-OP DIAGNOSIS: Severe left knee tricompartmental osteoarthritis TISSUE SUBMITTED: Bone and soft tissue left knee MICROSCOPIC DIAGNOSIS Bone and tissue of left knee, total knee resection: Severe degenerative joint disease. Mild synovial hyperplasia. AM:roberto 12/08/2021 MICROSCOPIC DESCRIPTION Slides are reviewed. GROSS DESCRIPTION Received is one container designated bone and soft tissue left knee. The specimen consists of multiple fragments of gil-yellow bone measuring in aggregate 15 x 14 x 2 cm. Also in the specimen container are multiple fragments of yellow-white soft tissue measuring in aggregate 2 x 1 x 0.5 cm. A number of bony fragments contain articular surfaces consistent with tibial plateau and femoral condyle and displaying prominent osteophyte formation, eburnation, and bone erosion. Speaker Wirer sections are submitted in two cassettes as follows: 1 - soft tissue, 2 - bone after decalcification. / AM:roberto 12/02/2021 TC:5 [facility]: [id number]
[2021-12-02] VITALS (10 sets, daily range): BP systolic 107–133; BP diastolic 57–97; PULSE 78–94; RESP 16–18; TEMP 36.3–36.9; O2SAT 95–100; BMI 37.0
[2021-12-02] MEDS: Lactated Ringers 1,000 ML 15 ML IV (06:15)
[2021-12-02] MEDS: Magnesium 1 GM over 15 mins IV (06:20)
[2021-12-02] MEDS: Insulin Lispro 100 UNIT/ML INSULN.PEN SC (06:25)
[2021-12-02] MEDS: Acetaminophen 500 MG Tablet 1000 MG PO (06:30)
[2021-12-02] MEDS: Gabapentin 600 MG Tablet PO (06:48)
--- NOTE | 2021-12-02 06:52 | OP.PCM_ITS ---
Report of Operation Date of Procedure: 12/02/21 Pre-Operative Diagnosis: Right knee primary osteoarthritis Post-Operative Diagnosis: Right knee primary osteoarthritis Surgery/Procedure Performed:: Right minimally invasive robotic total knee replacement Description of Surgical Findings:: Stable knee with good patella tracking Surgeon: Elijah Chairez mortgage loan officer: Nichole Aguirre Type of Anesthesia: Spinal Special Medications: 2 g Ancef, 1 g TXA at incision, 1 g TXA closure, 10 mg Decadron, joint cocktail (5 mg Duramorph, 30 mL of 0.5% Ropivicaine, 1000 units of epinephrine, 30 mg of Toradol) Specimen's removed: Bony cuts Description of Procedure: Implants used: 1. Oz size [] triathlon cruciate retaining distal femoral press-fit component 2. Oz size [] press-fit tritanium tibial baseplate 3. Oz X3 [] polyethylene 4. Oz X3 [] asymmetric patella Brief history operative indications: []-year-old [] with history of right knee osteoarthritis with radiographic findings with loss of joint space, osteophyte formation and subchondral sclerosis. Failed conservative measures as mentioned in the H&P. Discussion of total knee arthroplasty as well as risk and benefits were discussed the patient including but not limited to blood loss, DVTs, PEs, neurovascular damage, general risk of anesthesia including loss of life, and stiffness or instability were discussed with patient. Patient demonstrated understanding and was able to sign informed consent. Procedure: On the date of procedure patient's right lower extremity was marked in the preoperative area. The patient was then taken back to the operating room where the patient was placed on the table in the supine position. All bony prominences were identified a well-padded. Anesthesia assumed control of the C-spine and airway and remained controlled throughout the remainder of the procedure. A tourniquet was placed on the right upper thigh and the leg was prepped in a sterile fashion. The surgeon then scrubbed at this time .Upon reentering the room right lower extremity was draped in a standard orthopedic fashion. A timeout was then called and everyone agreed upon the side, the site, the procedure to be performed, patient's identity and antibiotics given. Esmarch bandage was used to exsanguinate the extremity and the tourniquet was placed up to 250 mmHg with the knee in flexion. A midline skin incision was made and sharp dissection was taken down through skin subcutaneous tissue and fat. The standard medial parapatellar incision was made and the patella was subluxed laterally. An Appropriate deep MCL release was done and the fat pad was resected. Our attention was then directed to the patella. The patella was everted and a flat resection was made. The knee was then flexed up in 2 femoral pins were placed inside the incision and 2 tibial pins were placed outside the incision in the medial tibia bicortically. Once this was completed the 2 checkpoints in the femur and tibia were placed. Knee was then flexed up and the bony landmarks were registered. Once this was completed knee was taken through range of motion and manually stressed allowing us to a plan for an appropriate tibial cut. The robotic arm was brought into the field sterilely and checkpoint and saw were registered. Based on the patient's deformity the tibial cut was made []. At this time the tensioner was then placed in the joint and ligament tension was checked at 90 degrees and full extension. Based on the patient's ligamentous tension appropriate adjustments were made to the operative plan and ligament releases were done. Once we were happy with our operative plan with balanced flexion and extension gaps our attention was directed to the femur. The robot was brought into the field sterilely and registered. Posterior condylar cuts, anterior chamfer cuts and anterior cuts were appropriately made for a size [] femur. When these were completed the saws were switched out in the distal femoral and posterior chamfer cuts were made. Protecting the soft tissue throughout this time. A size [] tibial base plate was selected. the knee was flexed to 90 degrees and the soft tissues and posterior osteophytes were removed from the joint. 40 cc of the periarticular injection was injected into the posterior medial corner of the joint. The appropriate trials were then placed on the femur and tibia. A trial polyethylene was trialed to ensure proper balancing and stability of the knee. The appropriate tibial internal rotation was then marked with a bovie. Our attention was then directed to the patella. The lug holes were drilled and the patella trial was placed. Patellar tracking was checked and deemed appropriate. Once we were happy lug holes were drilled for the femur and trial components were removed. the tibia was subluxed and pinned into place and the keel was pun ched and drilled appropriately. Final components were verified and opened, and cement was mixed in a vacuum. [employer] Simplex cement was used. The wound was copiously irrigated with normal saline. When the cement was ready the components were [] into place starting with the tibia, femur and finally cementing the patella. The trial poly component was placed and the knee was placed in full extension. All excess cement was removed in the process. Once the cement had cured the tracking, alignment and balance were verified and a size [] polyethylene component was placed. Once the final components were placed a 3-minute dilute Betadine lavage was performed followed by an Irrisept lavage was performed and the wound was copiously irrigated with normal saline solution and the periarticular injection was given. The wound was closed in a layer lópez fashion using #1 vicryl interrupted sutures for the arthrotomy, 2-0 interrupted Vicryl suture for the subcuticular layer and ingris for final skin closure. A sterile compressive dressing was then placed. The patient was then awakened from anesthesia, [facility] and transferred to the PACU for recovery. Post op plan DVT ppx: ASA 81mg BID, thigh high compression stockings Follow up: in office in 2 weeks for wound check PT: to start POD #0 at hospital, outpatient PT should be arranged. My physician assistant director was a vital part of this case. He was important in appropriate retraction during the case, and protection of soft tissues during bony cuts. His intimate knowledge of the case and my steps aided in safe and expedient completion of the procedure as well as appropriate position of the leg during the case. He was also vital in assisting with closure under my direct supervision. Due to the complexity of this case robotic arm was used to assist in the surgery to improve accuracy and clinical outcomes. Complications No intraoperative complications Admit VTE Documentation VTE Present on Admission: No VTE Mechan Device Prophylaxis: SCD's and Thigh High DUSTY Hose VTE Pharm Prophylaxis ordered?: Yes
[2021-12-02 06:55] LABS: Bedside Glucose 198 mg/dL (74-106)
[2021-12-02] MEDS: Cefazolin 2 GM in 0.9% Normal Saline 100 ML IV (07:25)
[2021-12-02] MEDS: TXA 1000mg in NS100 100ml (IVPB at Incision) 660 MG IV (07:30)
--- NOTE | 2021-12-02 07:31 | PCM.OPRPT ---
Report of Operation Date of Procedure: 12/02/21 Pre-Operative Diagnosis: Left knee primary osteoarthritis Post-Operative Diagnosis: Left knee primary osteoarthritis Surgery/Procedure Performed:: Left knee minimally invasive robotic assisted total knee replacement Description of Surgical Findings:: Stable knee with good patella tracking Surgeon: Elijah Chairez elastic yarn twister: Nichole Aguirre Type of Anesthesia: Spinal Anesthesiologist: Raúl Trejo Special Medications: 2 g Ancef, 1 g TXA at incision, 1 g TXA closure, 10 mg Decadron, joint cocktail (5 mg Duramorph, 30 mL of 0.5% Ropivicaine, 1000 units of epinephrine, 30 mg of Toradol) 1500 mg vanc Specimen's removed: Bony cuts Estimated Blood Loss (mL): 50 Fluids Replaced: 1000 ml crystalloid Description of Procedure: Implants used: 1. [employer] size 3 triathlon cruciate retaining distal femoral press-fit component 2. [employer] size 4 press-fit tritanium tibial baseplate 3. Oz X3 12 mm CS polyethylene 4. Oz X3 35 mm asymmetric patella Brief history operative indications: 66-year-old female with history of left knee osteoarthritis with radiographic findings with loss of joint space, osteophyte formation and subchondral sclerosis. Failed conservative measures as mentioned in the H&P. Discussion of total knee arthroplasty as well as risk and benefits were discussed the patient including but not limited to blood loss, DVTs, PEs, neurovascular damage, general risk of anesthesia including loss of life, and stiffness or instability were discussed with patient. Patient demonstrated understanding and was able to sign informed consent. Procedure: On the date of procedure patient's left lower extremity was marked in the preoperative area. The patient was then taken back to the operating room where the patient was placed on the table in the supine position. All bony prominences were identified a well-padded. Anesthesia assumed control of the C-spine and airway and remained controlled throughout the remainder of the procedure. A tourniquet was placed on the left upper thigh and the leg was prepped in a sterile fashion. The surgeon then scrubbed at this time .Upon reentering the room left lower extremity was draped in a standard orthopedic fashion. A timeout was then called and everyone agreed upon the side, the site, the procedure to be performed, patient's identity and antibiotics given. Esmarch bandage was used to exsanguinate the extremity and the tourniquet was placed up to 250 mmHg with the knee in flexion. A midline skin incision was made and sharp dissection was taken down through skin subcutaneous tissue and fat. The standard medial parapatellar incision was made and the patella was subluxed laterally. An Appropriate deep MCL release was done and the fat pad was resected. Our attention was then directed to the patella. The patella was everted and a flat resection was made. The knee was then flexed up in 2 femoral pins were placed inside the incision and 2 tibial pins were placed outside the incision in the medial tibia bicortically. Once this was completed the 2 checkpoints in the femur and tibia were placed. Knee was then flexed up and the bony landmarks were registered. Once this was completed knee was taken through range of motion and manually stressed allowing us to a plan for an appropriate tibial cut. The robotic arm was brought into the field sterilely and checkpoint and saw were registered. Based on the patient's deformity the tibial cut was made neutral to the tibial axis. At this time the tensioner was then placed in the joint and ligament tension was checked at 90 degrees and full extension. Based on the patient's ligamentous tension appropriate adjustments were made to the operative plan and ligament releases were done. Once we were happy with our operative plan with balanced flexion and extension gaps our attention was directed to the femur. The robot was brought into the field sterilely and registered. Posterior condylar cuts, anterior chamfer cuts and anterior cuts were appropriately made for a size 3 femur. When these were completed the saws were switched out in the distal femoral and posterior chamfer cuts were made. Protecting the soft tissue throughout this time. A size 4 tibial base plate was selected. the knee was flexed to 90 degrees and the soft tissues and posterior osteophytes were removed from the joint. 40 cc of the periarticular injection was injected into the posterior medial corner of the joint. The appropriate trials were then placed on the femur and tibia. A trial polyethylene was trialed to ensure proper balancing and stability of the knee. The appropriate tibial internal rotation was then marked with a bovie. Our attention was then directed to the patella. The lug holes were drilled and the patella trial was placed. Patellar tracking was checked and deemed appropriate. Once we were happy lug holes were drilled for the femur and trial components were removed. the tibia was subluxed and pinned into place and the keel was punched and drilled appropriately. Final components were verified and opened, and cement was mixed in a vacuum. [employer] Simplex cement was used. The wound was copiously irrigated with normal saline. When the cement was ready the components were impacted into place starting with the tibia, femur and finally cementing the patella. The trial poly component was placed and the knee was placed in full extension. All excess cement was removed in the process. Once the cement had cured the tracking, alignment and balance were verified and a size 12 mm CS polyethylene component was placed. Once the final components were placed a 3-minute dilute Betadine lavage was performed followed by an Irrisept lavage was performed and the wound was copiously irrigated with normal saline solution and the periarticular injection was given. The wound was closed in a layer lópez fashion using #1 vicryl interrupted sutures for the arthrotomy, 2-0 interrupted Vicryl suture for the subcuticular layer and ingris for final skin closure. A sterile compressive dressing was then placed. The patient was then awakened from anesthesia, transferred to the [facility] and transferred to the PACU for recovery. Post op plan DVT ppx: ASA 81mg BID, thigh high compression stockings Follow up: in office in 2 weeks for wound check PT: to start POD #0 at hospital, outpatient PT should be arranged. My physician content assistant was a vital part of this case. He was important in appropriate retraction during the case, and protection of soft tissues during bony cuts. His intimate knowledge of the case and my steps aided in safe and expedient completion of the procedure as well as appropriate position of the leg during the case. He was also vital in assisting with closure under my direct supervision. Due to the complexity of this case robotic arm was used to assist in the surgery to improve accuracy and clinical outcomes. Complications No intraoperative complications Admit VTE Documentation VTE Present on Admission: No VTE Mechan Device Prophylaxis: SCD's and Thigh High DUSTY Hose VTE Pharm Prophylaxis ordered?: Yes
[2021-12-02] MEDS: dexAMETHasone 10 MG/ML Vial IV (07:40)
[2021-12-02] MEDS: TXA 1000mg in NS100 100ml (IVPB at Closure) 660 MG IV (08:34)
--- NOTE | 2021-12-02 09:10 | RAD_ITS ---
EXAM: XR LEFT KNEE, 1 OR 2 VIEWS CLINICAL INDICATION: tka -- in PACU TECHNIQUE: Frontal and/or lateral views of the left knee. This report was created using [employer] report generation technology. COMPARISON: Right knee radiographs of 06/03/2021. FINDINGS: BONES/JOINTS: A total left knee arthroplasty is in place, and the metallic components are in satisfactory position. Soft tissue swelling and subcutaneous emphysema noted about the knee, and a moderate amount of pneumo-arthrosis is noted within the knee joint secondary to the recent surgery. Skin ingris overlie the operative site. No acute fracture. No subluxation. No sclerotic or destructive changes observed. SOFT TISSUES: See above. TUBES, LINES AND DEVICES: As on the prior right knee radiographs, a few rounded lucencies are seen within the distal femoral shaft due to previous placement and subsequent removal of an immobilization device. RAD/Knee 1 or 2 Views IMPRESSION: 3 component total knee arthroplasty in place and in anatomic alignment, without complication. Electronically Signed: Timothy Kirkpatrick MD at 5:33 EDT ,
[2021-12-02] MEDS: Lactated Ringers 1,000 ML 999 ML IV (09:53)
[2021-12-02 10:20] LABS: Bedside Glucose 120 mg/dL (74-106)
[2021-12-02] MEDS: Cefazolin 1 GM/50 ML BAG IV (11:10)
[2021-12-02] MEDS: oxyCODONE 5 MG Tablet PO (12:18)
[2021-12-02] MEDS: Ketorolac 30 MG/ML Syringe IV (12:19)
== END 2021-12-02 13:07 | disposition home or self-care (01) ==
LOC: SDC 05:34 → AC 05:34
PROVIDERS: Anesthesiology; PCP Family Medicine; Referring Provider Specialist; Visit Provider Specialist
PROC: 0SRD0JZ Replacement of Left Knee Joint with Synthetic Substitute, Open Approach (ICD-10-PCS; CPT 27447; principal; 2021-12-02 07:00)
DX: M17.12 Unilateral primary osteoarthritis, left knee (principal); E78.00 Pure hypercholesterolemia, unspecified; F17.210 Nicotine dependence, cigarettes, uncomplicated; K21.9 Gastro-esophageal reflux disease without esophagitis; Z86.16 Personal history of COVID-19; Z96.651 Presence of right artificial knee joint; Z98.84 Bariatric surgery status; Z79.899 Other long term (current) drug therapy
CPT/HCPCS: 27447; 01402; S2900; 64447; 36415; 71046; 73560; 80048; 82040; 82962; 83735; 85025; 87077; 87081; 88305; 88311; 97162; C1776; J7040; J7120; J2405; J3475